=== PATIENT | female | born 1970 | race Asian ===

== ENCOUNTER 2023-12-25 17:54 | Emergency (ER) | payer BC ==
[~2023-12-25] VITALS: Ht 162.6 cm; Wt 63.5 kg
[2023-12-25 18:22] VITALS: BP_SYST 128; PULSE 81; RESP 15; TEMP 98.1; O2SAT 100
[2023-12-25] MEDS ORDERED: HYDR-3917 PO (20:48)
[2023-12-25] MEDS ORDERED: IBUP-1969 PO (20:48)
[2023-12-25 21:05] VITALS: BP_SYST 128; PULSE 81; RESP 15; TEMP 98.1; O2SAT 100
== END 2023-12-25 21:05 | disposition home or self-care (01) ==
LOC: SED 17:54
DX: S63.622A Sprain of interphalangeal joint of left thumb, initial encounter (principal); Z79.899 Other long term (current) drug therapy; W22.8XXA Striking against or struck by other objects, initial encounter; Y93.89 Activity, other specified; Y92.89 Other specified places as the place of occurrence of the external cause; Y99.8 Other external cause status
CPT/HCPCS: 73140; 99283